=== PATIENT | female | born 1950 | race Caucasian/White ===

== ENCOUNTER 2017-09-08 10:00 | Outpatient (CLI) | payer MEDICARE, SELFPAY | END 2017-09-08 10:45 | disposition home or self-care (01) | PROVIDERS: Visit Provider Family Medicine | DX: G40.909 Epilepsy, unspecified, not intractable, without status epilepticus (principal); Z45.2 Encounter for adjustment and management of vascular access device | CPT/HCPCS: 80185; J1642 ==

== ENCOUNTER 2017-10-17 10:50 | Outpatient (CLI) | payer MEDICARE, SELFPAY ==
[2017-10-17 11:12] VITALS: BP 112/70; PULSE 90; RESP 18; TEMP 36.4; O2SAT 97
[2017-10-17 11:15] VITALS: BMI 11.0
== END 2017-10-17 11:30 | disposition home or self-care (01) ==
LOC: INF 11:57
PROVIDERS: Family Provider Family Medicine; PCP Family Medicine; Visit Provider Family Medicine
DX: Z45.2 Encounter for adjustment and management of vascular access device (principal)
CPT/HCPCS: J1642

== ENCOUNTER 2017-11-28 13:10 | Outpatient (CLI) | payer MEDICARE, SELFPAY ==
[2017-11-28 13:15] VITALS: BP 108/74; PULSE 66; RESP 20; TEMP 37.1; O2SAT 96
[2017-11-28 13:17] VITALS: BMI 10.5
[2017-11-28 13:30] VITALS: BP 108/74; PULSE 66; RESP 20; TEMP 37.1; O2SAT 96
[2017-11-28 13:45] VITALS: BP 108/74; PULSE 66; RESP 20; TEMP 37.1
[2017-11-28 14:05] LABS: Microscopic, Urine URINE MICROSCOPIC (MICROSCOPIC)
[2017-11-28 14:15] LABS: Basophils # 0.1 K/mm3 (0-0.2); Basophils % 0.7 % (0.1-2.0); Eosinophils # 0.4 K/mm3 (0.0-0.4); Eosinophils % 3.2 % (0.1-12.0); Hematocrit 44.7 % (37.0-47.0); Lymphocytes # 2.7 K/mm3 (0.7-4.5); Mean Corpuscular HGB Conc 31.2 g/dL (31.8-35.4); Mean Corpuscular Hemoglobin 28.9 pg (27.0-31.2); Mean Corpuscular Volume 92.7 fl (81-99); Mean Platelet Volume 7.9 fl (7.4-10.4); Monocytes # 0.5 K/mm3 (0.1-1.0); Monocytes % 3.5 % (1.7-9.3); Neutrophils # 9.9 K/mm3 (1.8-7.8); Neutrophils % 72.6 % (37.0-80.0); Platelet Count 410 K/mm3 (142-424); Red Blood Count 4.82 M/mm3 (4.20-5.40); Red Cell Distribution Width 13.8 % (11.5-17.5); White Blood Count 13.6 K/mm3 (4.8-10.8)
[2017-11-28 14:23] LABS: Alanine Aminotransferase 14 U/L (12-78); Albumin Level 2.7 gm/dL (3.4-5.0); Albumin/Globulin Ratio 0.6 (1.1-1.8); Alkaline Phosphatase 226 U/L (46-116); Anion Gap 13.1 mEq/L (5-15); Aspartate Amino Transferase 10 U/L (15-37); Bilirubin,Total 0.2 mg/dL (0.2-1.0); Blood Urea Nitrogen 15 mg/dL (7-18); Calcium 7.7 mg/dL (8.5-10.1); Carbon Dioxide 25 mmol/L (21.0-32.0); Chloride 105 mmol/L (98-107); Creatinine Clearance Estimated 21 mL/min (0-300); Creatinine,Serum 0.38 mg/dL (0.55-1.02); Estimated Glomerular Filt Rate 168 ml/min (>60); GFR (African American) 204 ML/MIN (>60); Globulin 4.2 gm/dl (1.3-3.2); Glucose 100 mg/dL (74-106); Potassium 4.1 mmoL/L (3.5-5.1); Sodium 139 mmol/L (136-145); Total Protein,Serum 6.9 gm/dL (6.4-8.2)
[2017-11-28 14:42] LABS: Phenytoin (Dilantin) 24.7 ug/mL (10-20)
[2017-11-28 15:06] LABS: Appearance,Urine CLOUDY (Clear); Bilirubin,Urine Negative (Negative); Blood, Urine Negative (Negative); Color,Urine YELLOW (Yellow); Glucose,Urine (UA) Negative (Negative); Ketones,Urine TRACE (Negative); Leukocyte Esterase,Urine Negative (Negative); Nitrate,Urine POSITIVE (Negative); PH,Urine 5.5 (5.0-8.5); Protein,Urine Negative (Negative); Specific Gravity, Urine 1.025 (1.005-1.030); Urobilinogen,Urine 0.2 EU/dl (0.2)
[2017-11-28 15:36] LABS: Bacteria,Urine 4+ /lpf
== END 2017-11-28 13:55 | disposition home or self-care (01) ==
LOC: INF 13:13
PROVIDERS: Family Provider Family Medicine; PCP Family Medicine; Visit Provider Family Medicine
DX: Z45.2 Encounter for adjustment and management of vascular access device (principal); R82.90 Unspecified abnormal findings in urine
CPT/HCPCS: 80053; 80185; 81001; 85025; 87086; 87088; 87186; J1642

== ENCOUNTER 2017-11-29 10:53 | Outpatient (CLI) | payer MEDICARE, SELFPAY ==
[2017-11-29 11:28] LABS: Alanine Aminotransferase 17 U/L (12-78); Albumin Level 2.7 gm/dL (3.4-5.0); Albumin/Globulin Ratio 0.7 (1.1-1.8); Alkaline Phosphatase 224 U/L (46-116); Amylase 304 U/L (25-125); Anion Gap 11.3 mEq/L (5-15); Aspartate Amino Transferase 16 U/L (15-37); Bilirubin,Total 0.1 mg/dL (0.2-1.0); Blood Urea Nitrogen 11 mg/dL (7-18); Calcium 7.7 mg/dL (8.5-10.1); Carbon Dioxide 27 mmol/L (21.0-32.0); Chloride 104 mmol/L (98-107); Creatinine Clearance Estimated 21 mL/min (0-300); Creatinine,Serum 0.37 mg/dL (0.55-1.02); Estimated Glomerular Filt Rate 174 ml/min (>60); GFR (African American) 210 ML/MIN (>60); Globulin 4.1 gm/dl (1.3-3.2); Glucose 93 mg/dL (74-106); Lipase 78 u/L (73-393); Magnesium 1.8 mg/dL (1.4-2.2); Potassium 4.3 mmoL/L (3.5-5.1); Sodium 138 mmol/L (136-145); Total Protein,Serum 6.8 gm/dL (6.4-8.2)
[2017-11-30 15:21] LABS: Albumin 3.1 g/dL (2.9-4.4); Alpha-1-Globulin 0.3 g/dL (0.0-0.4); Alpha-2-Globulin 0.8 g/dL (0.4-1.0); Gamma Globulin 1.2 g/dL (0.4-1.8); Protein, Total 6.2 g/dL (6.0-8.5)
[2017-12-01 15:23] LABS: Parathyroid Hormone Intact 217 pg/mL (15-65)
[2017-12-01 15:32] LABS: Vitamin D 25 Hydroxy 4.6 ng/mL (30.0-100.0)
== END 2017-11-29 11:15 | disposition home or self-care (01) ==
LOC: INF 10:53
PROVIDERS: Family Provider Family Medicine; PCP Family Medicine; Visit Provider Family Medicine
DX: R89.9 Unspecified abnormal finding in specimens from other organs, systems and tissues (principal); K86.1 Other chronic pancreatitis; Z45.2 Encounter for adjustment and management of vascular access device
CPT/HCPCS: 80053; 82150; 82652; 83690; 83735; 83970; 84165; J1642

== ENCOUNTER 2018-02-21 13:40 | Outpatient (CLI) | payer MEDICARE, SELFPAY ==
[2018-02-21 14:51] LABS: Basophils # 0.1 K/mm3 (0-0.2); Basophils % 0.9 % (0.1-2.0); Eosinophils # 0.2 K/mm3 (0.0-0.4); Eosinophils % 2.5 % (0.1-12.0); Hemoglobin 11.7 g/dL (12.2-16.2); Lymphocytes # 1.4 K/mm3 (0.7-4.5); Lymphocytes % 19.1 K/mm3 (10-50); Mean Corpuscular HGB Conc 30.9 g/dL (31.8-35.4); Mean Corpuscular Hemoglobin 29.1 pg (27.0-31.2); Mean Corpuscular Volume 94.2 fl (81-99); Mean Platelet Volume 7.2 fl (7.4-10.4); Monocytes # 0.5 K/mm3 (0.1-1.0); Monocytes % 6.9 % (1.7-9.3); Neutrophils # 5.3 K/mm3 (1.8-7.8); Neutrophils % 70.7 % (37.0-80.0); Platelet Count 539 K/mm3 (142-424); Red Blood Count 4.03 M/mm3 (4.20-5.40); Red Cell Distribution Width 15.3 % (11.5-17.5); White Blood Count 7.4 K/mm3 (4.8-10.8)
[2018-02-21 15:03] LABS: Alanine Aminotransferase 16 U/L (12-78); Albumin Level 2.1 gm/dL (3.4-5.0); Albumin/Globulin Ratio 0.5 (1.1-1.8); Alkaline Phosphatase 124 U/L (46-116); Anion Gap 9.1 mEq/L (5-15); Aspartate Amino Transferase 20 U/L (15-37); Bilirubin,Total 0.1 mg/dL (0.2-1.0); Blood Urea Nitrogen 6 mg/dL (7-18); Calcium 7.9 mg/dL (8.5-10.1); Carbon Dioxide 30 mmol/L (21.0-32.0); Chloride 99 mmol/L (98-107); Creatinine Clearance Estimated 19 mL/min (0-300); Estimated Glomerular Filt Rate 221 ml/min (>60); GFR (African American) 268 ML/MIN (>60); Globulin 4.1 gm/dl (1.3-3.2); Glucose 92 mg/dL (74-106); Potassium 3.1 mmoL/L (3.5-5.1); Sodium 135 mmol/L (136-145); Total Protein,Serum 6.2 gm/dL (6.4-8.2)
[2018-02-21 15:04] LABS: Chol/HDL Ratio 3.1 (1-3.5); Cholesterol 173 mg/dL (140-200); HDL Cholesterol 55 mg/dL (29-89); LDL Cholesterol 92 mg/dL (0-130); Triglycerides 129 mg/dL (30-200); VLDL Cholesterol 26 mg/dL (0-40)
[2018-02-21 15:13] LABS: Thyroid Stimulating Hormone 3.31 uIU/ml (0.358-3.740)
[2018-02-23 08:25] LABS: Iron 40 ug/dL (27-139); UIBC 136 ug/dL (118-369)
[2018-02-23 10:28] LABS: Iron Saturation 23 % (15-55)
== END 2018-02-21 14:30 | disposition home or self-care (01) ==
LOC: INF 14:10
PROVIDERS: Family Provider Family Medicine; PCP Family Medicine; Visit Provider Nurse Practitioner Family
DX: I10 Essential (primary) hypertension (principal); F32.0 Major depressive disorder, single episode, mild; E78.2 Mixed hyperlipidemia; D50.0 Iron deficiency anemia secondary to blood loss (chronic)
CPT/HCPCS: 80053; 80061; 83550; 84443; 85025; J1642

== ENCOUNTER 2018-02-23 12:45 | Outpatient (CLI) | payer MEDICARE, SELFPAY ==
[2018-02-23 13:45] LABS: Anion Gap 11.7 mEq/L (5-15); Blood Urea Nitrogen 12 mg/dL (7-18); Calcium 8.1 mg/dL (8.5-10.1); Carbon Dioxide 30 mmol/L (21.0-32.0); Chloride 103 mmol/L (98-107); Creatinine Clearance Estimated 19 mL/min (0-300); Creatinine,Serum 0.35 mg/dL (0.55-1.02); Estimated Glomerular Filt Rate 185 ml/min (>60); GFR (African American) 224 ML/MIN (>60); Glucose 119 mg/dL (74-106); Sodium 142 mmol/L (136-145)
[2018-02-23 13:47] LABS: Potassium 2.7 mmoL/L (3.5-5.1)
[2018-02-23 13:58] LABS: Basophils % 0.4 % (0.1-2.0); Eosinophils # 0.1 K/mm3 (0.0-0.4); Eosinophils % 0.7 % (0.1-12.0); Hematocrit 37.7 % (37.0-47.0); Hemoglobin 11.2 g/dL (12.2-16.2); Lymphocytes # 1.4 K/mm3 (0.7-4.5); Lymphocytes % 12.9 K/mm3 (10-50); Mean Corpuscular HGB Conc 29.7 g/dL (31.8-35.4); Mean Corpuscular Hemoglobin 28.2 pg (27.0-31.2); Mean Corpuscular Volume 94.9 fl (81-99); Mean Platelet Volume 7.5 fl (7.4-10.4); Monocytes # 0.4 K/mm3 (0.1-1.0); Monocytes % 4.1 % (1.7-9.3); Neutrophils # 8.6 K/mm3 (1.8-7.8); Neutrophils % 81.9 % (37.0-80.0); Platelet Count 587 K/mm3 (142-424); Red Blood Count 3.97 M/mm3 (4.20-5.40); Red Cell Distribution Width 15.4 % (11.5-17.5); White Blood Count 10.5 K/mm3 (4.8-10.8)
[2018-02-24 09:23] LABS: Iron 42 ug/dL (27-139)
[2018-02-24 20:26] LABS: UIBC 111 ug/dL (118-369)
[2018-02-24 20:27] LABS: Calcium, Ionized 4.9 mg/dL (4.5-5.6); Iron Saturation 27 % (15-55)
== END 2018-02-23 13:10 | disposition home or self-care (01) ==
LOC: INF 13:55
PROVIDERS: PCP Nurse Practitioner Family; Visit Provider Nurse Practitioner Family
DX: D50.8 Other iron deficiency anemias (principal); E83.51 Hypocalcemia; E87.6 Hypokalemia
CPT/HCPCS: 80048; 82330; 83550; 85025; J1642

== ENCOUNTER → 2018-02-27 09:13 | Outpatient (CLI) | payer MEDICARE, SELFPAY ==
--- NOTE | 2018-02-27 09:29 | CT_ITS ---
CT abdomen pelvis w con CLINICAL INDICATION: ITS.REASON: PELVIC AND PERINEAL PAIN ORDERING PHYSICIAN: Stephanie Harper PATIENT AGE: 67 years COMPARISON: None TECHNIQUE: Axial images obtained with sagittal and coronal reformats. All CT scans at the facility use one or more dose reduction, viz: automated exposure control; ma/kV adjustment per patient size (including targeted exams where dose is matched to indication; i.e. head); or iterative reconstruction technique. Axial images are obtained at 30 seconds, 60 seconds, and 5 minute delayed PROCEDURE: Oral Contrast: None IV Contrast: 50 mL's of Isovue-370. FINDINGS: The report is delayed waiting old MRI films for comparison which are have not been made available .. There is an unenhanced CT scan from 01/02/2018 from [facility] is available. Patient is very cachectic. No acute finding in the lung bases. There is a gastrostomy tube present the tip in good position. There is a 3 mm isodensity in the right hepatic lobe which may be due to small cyst. There has been a prior cholecystectomy. There is mild dilatation of the intra and extrahepatic biliary tree. The spleen, adrenal glands, and kidneys have an unremarkable appearance Percutaneous gastrostomy tube is present. It appears that the patient has had prior gastrojejunostomy. There are multiple unopacified loops of small and large bowel which could secure mimic pathology. Rectum is somewhat distended with gas and stool. There is a prominent loop of small bowel in the mid pelvic region no free air is evident. No obvious abscess. There is a complex enhancing mass in the region of the head of the pancreas at the uncinate process measuring 3 x 2.5 cm. This is heterogeneous in nature demonstrating some small cystic areas but also showing contrast enhancement. It is difficult to determine the extent of this lesion secondary to the unopacified bowel and the patient's severe cachexia. No acute bony anomalies. There is a defect in the right ilium laterally and centrally and could be due to prior trauma or bone harvesting site. IMPRESSION: 1. 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 Those images are not available for review. The dimensions are similar to the MRI report of 3 x 2.5 cm. 2. Dilated small bowel loops in the mid and lower abdomen nonspecific and may be related to prior gastrojejunostomy. 3. Moderate amount retained colonic feces. Study is very limited for bowel evaluation secondary to patient's cachexia and lack of oral contrast. 1. No acute bony anomalies.
== END ==
PROVIDERS: Family Provider Family Medicine; PCP Nurse Practitioner Family; Visit Provider Nurse Practitioner Family
DX: R10.2 Pelvic and perineal pain (principal)
CPT/HCPCS: 74177; J1642; Q9967

== ENCOUNTER → 2018-03-08 10:33 | Outpatient (REF) | payer MEDICARE, SELFPAY | LOC: LAB.CARL 10:33 | PROVIDERS: Visit Provider Nurse Practitioner Family | DX: L02.211 Cutaneous abscess of abdominal wall (principal); R10.32 Left lower quadrant pain | CPT/HCPCS: 87070; 87077; 87186; 87205 ==

== ENCOUNTER 2018-03-23 10:58 | Outpatient (CLI) | payer MEDICARE, SELFPAY | END 2018-03-23 11:10 | disposition home or self-care (01) | LOC: INF 10:58 | PROVIDERS: Family Provider Family Medicine; PCP Nurse Practitioner Family; Visit Provider Family Medicine | DX: Z45.2 Encounter for adjustment and management of vascular access device (principal) | CPT/HCPCS: 96523; J1642 ==

== ENCOUNTER 2018-04-24 10:58 | Outpatient (CLI) | payer MEDICARE, SELFPAY | END 2018-04-24 11:10 | disposition home or self-care (01) | LOC: INF 10:58 | PROVIDERS: Family Provider Family Medicine; PCP Nurse Practitioner Family; Visit Provider Family Medicine | DX: Z45.2 Encounter for adjustment and management of vascular access device (principal) | CPT/HCPCS: 96523; J1642 ==

== ENCOUNTER 2018-05-25 10:35 | Outpatient (CLI) | payer MEDICARE, SELFPAY ==
[2018-05-25 10:55] VITALS: BP 132/68; PULSE 90; RESP 20; TEMP 36.9; O2SAT 96
== END 2018-05-25 11:05 | disposition home or self-care (01) ==
LOC: INF 10:51
PROVIDERS: PCP Nurse Practitioner Family; Visit Provider Nurse Practitioner Family
DX: Z45.2 Encounter for adjustment and management of vascular access device (principal)
CPT/HCPCS: 96523; J1642

== ENCOUNTER 2018-06-29 09:51 | Outpatient (CLI) | payer MEDICARE, SELFPAY ==
[2018-06-29 09:55] VITALS: BP 135/74; PULSE 68; RESP 20; TEMP 36.9; O2SAT 96
[2018-07-30 08:59] VITALS: BMI 11.2
== END 2018-06-29 10:00 | disposition home or self-care (01) ==
LOC: INF 09:51
PROVIDERS: Visit Provider Family Medicine
DX: Z45.2 Encounter for adjustment and management of vascular access device (principal)
CPT/HCPCS: 96523; J1642

== ENCOUNTER 2018-08-17 09:35 | Outpatient (CLI) | payer MEDICARE, SELFPAY | END 2018-08-17 09:55 | disposition home or self-care (01) | LOC: INF 09:38 | PROVIDERS: Visit Provider Nurse Practitioner Family | DX: Z45.2 Encounter for adjustment and management of vascular access device (principal); E44.0 Moderate protein-calorie malnutrition | CPT/HCPCS: 96523; J1642 ==

== ENCOUNTER 2018-09-19 10:00 | Outpatient (CLI) | payer MEDICARE, SELFPAY ==
[2018-09-19 10:10] VITALS: BP 106/55; PULSE 72; RESP 18; O2SAT 96
== END 2018-09-19 10:20 | disposition home or self-care (01) ==
LOC: INF 10:03
PROVIDERS: Visit Provider Nurse Practitioner Family
DX: Z45.2 Encounter for adjustment and management of vascular access device (principal)
CPT/HCPCS: 96523; J1642

== ENCOUNTER 2018-10-19 14:25 | Outpatient (CLI) | payer MEDICARE, SELFPAY | END 2018-10-19 15:00 | disposition home or self-care (01) | LOC: INF 14:45 | PROVIDERS: Visit Provider Nurse Practitioner Family | DX: Z45.2 Encounter for adjustment and management of vascular access device (principal); E44.0 Moderate protein-calorie malnutrition | CPT/HCPCS: 96523 ==

== ENCOUNTER 2018-11-20 10:48 | Outpatient (CLI) | payer MEDICARE, SELFPAY | END 2018-11-20 11:04 | disposition home or self-care (01) | LOC: INF 10:48 | PROVIDERS: Visit Provider Nurse Practitioner Family | DX: Z45.2 Encounter for adjustment and management of vascular access device (principal); E44.0 Moderate protein-calorie malnutrition | CPT/HCPCS: 96523; J1642 ==

== ENCOUNTER 2018-12-18 10:53 | Outpatient (CLI) | payer MEDICARE, SELFPAY ==
[2018-12-18 10:57] VITALS: BMI 11.3
[2018-12-18 11:35] LABS: Basophils # 0.1 K/mm3 (0-0.2); Basophils % 0.5 % (0.1-2.0); Eosinophils # 0.3 K/mm3 (0.0-0.4); Eosinophils % 2.3 % (0.1-12.0); Hematocrit 41.9 % (37.0-47.0); Hemoglobin 13.3 g/dL (12.2-16.2); Lymphocytes # 1.7 K/mm3 (0.7-4.5); Lymphocytes % 15.7 % (10-50); Mean Corpuscular HGB Conc 31.9 g/dL (31.8-35.4); Mean Corpuscular Hemoglobin 30.7 pg (27.0-31.2); Mean Corpuscular Volume 96.3 fl (81-99); Mean Platelet Volume 6.7 fl (7.4-10.4); Monocytes # 0.6 K/mm3 (0.1-1.0); Monocytes % 5.2 % (1.7-9.3); Neutrophils # 8.1 K/mm3 (1.8-7.8); Neutrophils % 76.4 % (37.0-80.0); Platelet Count 345 K/mm3 (142-424); Red Blood Count 4.35 M/mm3 (4.20-5.40); Red Cell Distribution Width 12.6 % (11.5-17.5); White Blood Count 10.6 K/mm3 (4.8-10.8)
[2018-12-18 12:04] LABS: Iron 64 ug/dl (28-170); Thyroid Stimulating Hormone 1.73 uIU/ml (0.358-3.740)
[2018-12-18 12:23] LABS: Alanine Aminotransferase 21 U/L (12-78); Albumin Level 3.1 gm/dL (3.4-5.0); Albumin/Globulin Ratio 0.9 (1.1-1.8); Alkaline Phosphatase 100 U/L (46-116); Anion Gap 14.2 mEq/L (5-15); Aspartate Amino Transferase 17 U/L (15-37); Bilirubin,Total 0.2 mg/dL (0.2-1.0); Blood Urea Nitrogen 17 mg/dL (7-18); Calcium 8.4 mg/dL (8.5-10.1); Carbon Dioxide 28 mmol/L (21.0-32.0); Chloride 104 mmol/L (98-107); Chol/HDL Ratio 4.2 (1-3.5); Cholesterol 180 mg/dL (140-200); Creatinine Clearance Estimated 22 mL/min (50-200); Creatinine,Serum 0.38 mg/dL (0.55-1.02); Estimated Glomerular Filt Rate 168 ml/min (>60); GFR (African American) 203 ML/MIN (>60); Globulin 3.4 gm/dl (1.3-3.2); Glucose 101 mg/dL (74-106); HDL Cholesterol 43 mg/dL (29-89); LDL Cholesterol 109 mg/dL (0-130); Potassium 4.2 mmoL/L (3.5-5.1); Sodium 142 mmol/L (136-145); Total Protein,Serum 6.5 gm/dL (6.4-8.2); Triglycerides 140 mg/dL (30-200); VLDL Cholesterol 28 mg/dL (0-40)
[2018-12-19 07:15] LABS: Iron 67 ug/dL (27-139); UIBC 167 ug/dL (118-369)
[2018-12-19 08:26] LABS: Iron Saturation 29 % (15-55)
[2018-12-19 14:10] LABS: Folate 17.3 ng/mL (>3.0); Vitamin B12 512 pg/mL (232-1245)
== END 2018-12-18 11:27 | disposition home or self-care (01) ==
LOC: INF 10:53
PROVIDERS: Visit Provider Nurse Practitioner Family
DX: Z45.2 Encounter for adjustment and management of vascular access device (principal); D50.0 Iron deficiency anemia secondary to blood loss (chronic); E78.2 Mixed hyperlipidemia; R63.4 Abnormal weight loss
CPT/HCPCS: 80053; 80061; 82607; 82746; 83540; 83550; 84443; 85025; J1642

== ENCOUNTER → 2018-12-25 14:38 | Outpatient (CLI) | payer MEDICARE, SELFPAY ==
--- NOTE | 2018-12-25 14:44 | XR_ITS ---
XR chest 2V HISTORY: pneumonia, smoker, COPD ITS.REASON: PNEUMONIA ORDERING PHYSICIAN: Stephanie Harper PATIENT AGE: 68 years COMPARISON: 5:15 FINDINGS: The heart size is unremarkable. There is hyperinflation with attenuation of the peripheral pulmonary vessels consistent with COPD. There is increased density in the left lung base especially is for an area of pneumonia. Some of this may be due to soft tissue attenuation from the overlying breast shadow is a patient is slightly rotated. The remaining lungs are clear. No acute bony findings. There is a right subclavian Mediport catheter present with the tip in the region of the SVC. IMPRESSION: COPD with left basilar infiltrate
== END ==
PROVIDERS: PCP Nurse Practitioner Family; Visit Provider Nurse Practitioner Family
DX: J18.9 Pneumonia, unspecified organism (principal)
CPT/HCPCS: 71046

== ENCOUNTER 2019-01-15 10:48 | Outpatient (CLI) | payer MEDICARE, SELFPAY | END 2019-01-15 11:03 | disposition home or self-care (01) | LOC: INF 10:48 | PROVIDERS: Visit Provider Nurse Practitioner Family | DX: Z45.2 Encounter for adjustment and management of vascular access device (principal); E44.0 Moderate protein-calorie malnutrition | CPT/HCPCS: 96523; J1642 ==

== ENCOUNTER 2019-02-12 10:29 | Outpatient (CLI) | payer MEDICARE, SELFPAY | END 2019-02-12 10:50 | disposition home or self-care (01) | LOC: INF 10:29 | PROVIDERS: Visit Provider Nurse Practitioner Family | DX: Z45.2 Encounter for adjustment and management of vascular access device (principal); E44.0 Moderate protein-calorie malnutrition | CPT/HCPCS: 96523; J1642 ==

== ENCOUNTER 2019-03-18 13:22 | Outpatient (CLI) | payer MEDICARE, SELFPAY | END 2019-03-18 13:25 | disposition home or self-care (01) | LOC: INF 13:22 | PROVIDERS: Visit Provider Nurse Practitioner Family | DX: E44.0 Moderate protein-calorie malnutrition (principal); Z45.2 Encounter for adjustment and management of vascular access device | CPT/HCPCS: 96523; J1642 ==

== ENCOUNTER 2019-04-23 11:37 | Outpatient (CLI) | payer MEDICARE, SELFPAY | END 2019-04-23 12:00 | disposition home or self-care (01) | LOC: INF 11:37 | PROVIDERS: Visit Provider Nurse Practitioner Family | DX: E44.0 Moderate protein-calorie malnutrition (principal); Z45.2 Encounter for adjustment and management of vascular access device | CPT/HCPCS: 96523; J1642 ==

== ENCOUNTER 2019-05-21 11:34 | Outpatient (CLI) | payer MEDICARE, SELFPAY | END 2019-05-21 12:03 | disposition home or self-care (01) | LOC: INF 11:34 | PROVIDERS: Visit Provider Nurse Practitioner Family | DX: Z45.2 Encounter for adjustment and management of vascular access device (principal); E44.0 Moderate protein-calorie malnutrition | CPT/HCPCS: 96523; J1642 ==

== ENCOUNTER 2019-06-28 10:40 | Outpatient (CLI) | payer MEDICARE, SELFPAY ==
[2019-06-28 10:49] VITALS: BMI 10.5
[2019-06-28 11:10] LABS: Basophils # 0.1 K/mm3 (0-0.2); Basophils % 0.8 % (0.1-2.0); Eosinophils # 0.3 K/mm3 (0.0-0.4); Eosinophils % 3.2 % (0.1-12.0); Hematocrit 37.6 % (37.0-47.0); Hemoglobin 11.1 g/dL (12.2-16.2); Lymphocytes # 1.4 K/mm3 (0.7-4.5); Mean Corpuscular HGB Conc 29.6 g/dL (31.8-35.4); Mean Corpuscular Hemoglobin 28.9 pg (27.0-31.2); Mean Corpuscular Volume 97.4 fl (81-99); Mean Platelet Volume 7.1 fl (7.4-10.4); Monocytes # 0.4 K/mm3 (0.1-1.0); Monocytes % 4.9 % (1.7-9.3); Neutrophils # 6.5 K/mm3 (1.8-7.8); Platelet Count 347 K/mm3 (142-424); Red Blood Count 3.86 M/mm3 (4.20-5.40); Red Cell Distribution Width 13.3 % (11.5-17.5); White Blood Count 8.7 K/mm3 (4.8-10.8)
[2019-06-28 11:28] LABS: Alanine Aminotransferase 14 U/L (12-78); Albumin/Globulin Ratio 0.8 (1.1-1.8); Alkaline Phosphatase 150 U/L (46-116); Anion Gap 7.8 mEq/L (5-15); Aspartate Amino Transferase 16 U/L (15-37); Bilirubin,Total 0.2 mg/dL (0.2-1.0); Blood Urea Nitrogen 16 mg/dL (7-18); Carbon Dioxide 32 mmol/L (21.0-32.0); Chloride 102 mmol/L (98-107); Creatinine Clearance Estimated 21 mL/min (50-200); Creatinine,Serum 0.33 mg/dL (0.55-1.02); Estimated Glomerular Filt Rate 198 ml/min (>60); GFR (African American) 239 ML/MIN (>60); Globulin 3.8 gm/dl (1.3-3.2); Glucose 118 mg/dL (74-106); Potassium 3.8 mmoL/L (3.5-5.1); Sodium 138 mmol/L (136-145); Thyroid Stimulating Hormone 1.31 uIU/ml (0.358-3.740); Total Protein,Serum 6.8 gm/dL (6.4-8.2)
== END 2019-06-28 11:00 | disposition home or self-care (01) ==
LOC: INF 10:40
PROVIDERS: Visit Provider Nurse Practitioner Family
DX: E44.0 Moderate protein-calorie malnutrition (principal); I10 Essential (primary) hypertension; D50.0 Iron deficiency anemia secondary to blood loss (chronic); J44.9 Chronic obstructive pulmonary disease, unspecified; F41.1 Generalized anxiety disorder; Z45.2 Encounter for adjustment and management of vascular access device
CPT/HCPCS: 80053; 84443; 85025; J1642

== ENCOUNTER 2019-07-21 03:58 | Observation (INO) ==
--- NOTE | 2019-07-21 04:12 | Emergency Department Note ---
ED Disposition Clinical Impression: COPD exacerbation Disposition: Admitted as Observation Condition on Discharge: Fair Referrals: Provider,Referral, [Primary Care Provider] - - Critical Care Critical Care Time: No Attestation: On 07/21/19, the high probability of a clinically significant, sudden or life threatening deterioration of the following system(s) required my full and direct attention, intervention and personal management. The time I documented below is in addition to time spent performing reported procedures but includes the following listed in this critical care notation. Medical Decision Making - Mohan Inquiry Pt receiving controlled substance: No Vital Signs: 07/21/19 04:06 Temperature 98.3 F Temperature Source Oral Pulse Rate [Left Radial] 109 H Respiratory Rate 22 Blood Pressure [Right Arm] 140/80 Blood Pressure Mean [Right Arm] 100 Blood Pressure Source [Right Arm] Automatic Cuff Blood Pressure Position [Right Arm] Sitting 02 Sat by Pulse Oximetry 93 L Oxygen Delivery Method Nasal Cannula Oxygen Flow Rate (LPM) 2 - Lab Data Lab Results 07/21/19 04:15: WBC 15.9 H, RBC 3.82 L, Hgb 11.7 L, Hct 38.2, MCV 99.8 H, MCH 30.6, MCHC 30.6 L, RDW 13.0, Plt Count 364, MPV 7.0 L, Neut % (Auto) 79.2, Lymph % (Auto) 12.2, [place] % (Auto) 5.9, Eos % (Auto) 2.1, Baso % (Auto) 0.5, Neut # (Auto) 12.6 H, Lymph # (Auto) 2.0, [place] # (Auto) 0.9, Eos # (Auto) 0.3, Baso # (Auto) 0.1, Total Counted 100, Neutrophils % (Manual) 79 H, Band Neutrophils % 5.0, Lymphocytes % (Manual) 12, Monocytes % (Manual) 4, Platelet Estimate Normal, Hypochromasia 3+, Macrocytosis 1+ 07/21/19 04:15: Sodium 141, Potassium 4.4, Chloride 102, Carbon Dioxide 29, Anion Gap 14.4, BUN 19 H, Creatinine 0.43 L, Estimated Creat Clear 23, Estimated GFR 146, Est GFR ( Amer) 176, Glucose 90, Calcium 8.7, Total Bilirubin 0.3, AST 20, ALT 19, Alkaline Phosphatase 141 H, Troponin I < 0.02, Total Protein 7.0, Albumin 3.3 L, Globulin 3.7 H, Albumin/Globulin Ratio 0.9 L 07/21/19 04:15: Lactate 0.6 07/21/19 04:22: O2 % 2, ABG pH 7.36, ABG pCO2 45.5 H, ABG pO2 40.0 L, ABG HCO3 25.0, ABG Total CO2 26.4, ABG O2 Saturation 74 L*, ABG Base Excess -0.5, Raul Test Y Result diagrams: 07/21/19 04:15 07/21/19 04:15 Orders (Tests/Meds): ED MEDICATIONS Generic Name Dose Route Start Last Admin Trade Name Freq PRN Reason Stop Dose Admin Ceftriaxone Sodium 1 gm/ 50 mls @ 100 mls/hr 07/21/19 04:15 07/21/19 04:26 Sodium Chloride IV 08/04/19 04:14 100 mls/hr Q24H AARON Administration Protocol Azithromycin 500 mg/ Sodium 250 mls @ 250 mls/hr 07/21/19 04:15 07/21/19 04:34 Chloride IV 08/04/19 04:14 250 mls/hr Q24H AARON Administration Protocol Discontinued Medications Generic Name Dose Route Start Last Admin Trade Name Freq PRN Reason Stop Dose Admin Methylprednisolone Sodium Succinate 125 mg 07/21/19 04:13 07/21/19 04:26 Solu-Medrol 125mg/2ml Vial IV 07/21/19 04:14 125 mg ONCE ONE Administration ORDERS Category Date Time Status XR chest portable Stat Exams 07/21/19 04:13 Ordered Blood Culture Stat Micro 07/21/19 04:15 Received Arterial Blood Gas Stat RT 07/21/19 04:13 Ordered - Radiology Data #1 Image(s): Chest Image Reviewed: Yes I reviewed the patient's radiology image Severe COPD. Fibrotic changes in the bases. Port-A-Cath. - ECG Data Tracing #1 EKG interpreted by Turner Zhu MD: Rhythm: sinus tachycardia Rate: 105 [place]: normal Ectopy: none Conduction: normal ST Segment Changes: none T Wave Changes: none Q Waves: none No evidence of acute ischemia or injury Baseline artifact and wander present - Physician Consults Physician Consulted: Fer Time: 05:16 Reason -: Admission Comment/Response: Agrees to admit the patient to the hospital. We discussed the patient's clinical information, including history, exam, laboratory and radiology results and ED course. Per hospital procedure, I will write temporary bridge inpatient orders on the patient. Specific orders requested by the admitting physician: Continue current treatment Medical Decision Narrative: Respiratory therapist reports that he is pretty sure the blood gasses he gerber are venous General Adult HPI - General Chief complaint: Shortness of Breath/Dyspnea Stated complaint: Shortness of Breath Time Seen by Provider: 07/21/19 04:04 - History of Present Illness HPI narrative: Brought in by ambulance for shortness of breath. States she has been she has been short of breath all day. Used a nebulizer and it helped but then got worse tonight. Given 2 nebulizer treatments in the ambulance during transport which s he also says helped. She has severe COPD, she is on oxygen 2 L nasal cannula at home in addition to her nebulizer treatments. She is still a smoker. Denies any significant cough or sputum production or fever. Has pain in her chest and back for 2 days. - Related Data Home Medications Medication Instructions Recorded Confirmed Phenytoin Sodium Extended 200 mg PO QODHS 10/17/17 07/21/19 Phenytoin Sodium Extended 300 mg PO QODHS 10/17/17 07/21/19 Sertraline HCl [Zoloft] 50 mg PO DAILY 10/17/17 07/21/19 diphenhydrAMINE HCl [Benadryl] 25 mg PO NEEDED PRN 10/17/17 07/21/19 Amlodipine Besylate [Amlodipine 5 mg PO DAILY 07/21/19 07/21/19 5mg tab] Ipratropium/Albuterol Sulfate 120 puff IN DAILY 07/21/19 07/21/19 [Combivent Respimat Inh] predniSONE [Prednisone 5mg 5 mg PO DAILY 07/21/19 07/21/19 Tab] Allergies Allergy/AdvReac Type Severity Reaction Status Date / Time aspirin [ASPIRIN] Allergy Severe ANAPHYLAXIS Verified 07/21/19 04:12 latex [LATEX] Allergy Intermediate I-RASH Verified 07/21/19 04:12 meperidine [From DEMEROL] Allergy Intermediate I-HIVES, Verified 07/21/19 04:12 DIFF BREATHING [facility] History - Hepatitis A Screen Attestation statement:: This patient has been screened for Hepatitis A risk factors. I have reviewed the patient's past medical history: Yes Medical History: Denies:: Cancer, Diabetes Mellitus Type 1, Diabetes Mellitus Type 2, MRSA Other Surgeries: Yes: Other (port a cath placement) Amputation: No Fractures: No - Social History Smoking Status: Current every day smoker Tobacco Type: cigarettes # Packs/Day (cigarettes): 1 Alcohol Intake: never Occupational Status: disabled Housing: house Household Members: spouse Family Hx:: Cancer, Coronary Artery Disease, Hypertension ROS Obtained: Yes All systems reviewed & no additional complaints - Constitutional Constitutional: Denies fever(s) - Cardiovascular Cardiovascular: Reports chest pain - Respiratory Respiratory: No cough, Yes dyspnea, No excessive phlegm production, No coughing up blood - Gastrointestinal Gastrointestingal: Denies: abdominal pain, vomiting Physical Exam - General General appearance: alert, in distress (mild resp distress), cachectic Comment: tachypnea - Head Head exam: atraumatic, normocephalic - Eye Eye exam: Absent: scleral icterus - ENT ENT exam: Present: mucous membranes moist - Neck Neck exam: Present: normal inspection, trachea midline - Chest Chest inspection: Present: symmetric chest wall rise - Respiratory Respiratory exam: Present: wheezes, accessory muscle use, other (rhonchi) - Cardiovascular Cardiovascular exam: Present: normal rhythm, normal heart sounds - Abdominal Exam Abdominal exam: Present: soft, normal bowel sounds. Absent: distention, tenderness - Extremities Exam Extremities exam: Present: normal inspection - Neurological Exam Neurological exam: Present: alert, oriented X3 - Psychiatric Psychiatric exam: Present: normal affect, normal mood - Skin Skin exam: Present: warm, dry
[2019-07-21 04:23] LABS: ABG Base Excess -0.5 mmol/L (-2.4-2.3); ABG Oxygen Saturation 74 % (90-100); ABG PCO2 45.5 mmhg (35.0-45.0); ABG TCO2 26.4 mmhg (23-27)
[2019-07-21 04:27] LABS: Basophils # 0.1 K/mm3 (0-0.2); Basophils % 0.5 % (0.1-2.0); Eosinophils # 0.3 K/mm3 (0.0-0.4); Eosinophils % 2.1 % (0.1-12.0); Hematocrit 38.2 % (37.0-47.0); Hemoglobin 11.7 g/dL (12.2-16.2); Lymphocytes % 12.2 % (10-50); Mean Corpuscular HGB Conc 30.6 g/dL (31.8-35.4); Mean Corpuscular Volume 99.8 fl (81-99); Monocytes # 0.9 K/mm3 (0.1-1.0); Monocytes % 5.9 % (1.7-9.3); Neutrophils # 12.6 K/mm3 (1.8-7.8); Neutrophils % 79.2 % (37.0-80.0); Platelet Count 364 K/mm3 (142-424); Red Blood Count 3.82 M/mm3 (4.20-5.40); White Blood Count 15.9 K/mm3 (4.8-10.8)
[2019-07-21 04:30] LABS: Allen's Test Y; Oxygen 2 %
[2019-07-21 04:32] LABS: ABG PH 7.36 mmol/L (7.35-7.45)
[2019-07-21 04:43] LABS: Lymphocytes % 12 % (10-50); Monocytes % 4 % (2-9); Neutrophils % 79 % (42-76); Total Cells Counted 100
[2019-07-21 04:44] LABS: Hypochromasia 3+; Macrocytosis 1+
[2019-07-21 04:51] LABS: Alanine Aminotransferase 19 U/L (12-78); Albumin Level 3.3 gm/dL (3.4-5.0); Albumin/Globulin Ratio 0.9 (1.1-1.8); Alkaline Phosphatase 141 U/L (46-116); Anion Gap 14.4 mEq/L (5-15); Aspartate Amino Transferase 20 U/L (15-37); Bilirubin,Total 0.3 mg/dL (0.2-1.0); Blood Urea Nitrogen 19 mg/dL (7-18); Calcium 8.7 mg/dL (8.5-10.1); Carbon Dioxide 29 mmol/L (21.0-32.0); Chloride 102 mmol/L (98-107); Globulin 3.7 gm/dl (1.3-3.2); Glucose 90 mg/dL (74-106); Sodium 141 mmol/L (136-145)
--- NOTE | 2019-07-21 10:47 | Pharmacy Consult Notes ---
[facility] Pharmacy VTE Monitoring - Patient Demographics Admission date: 07/21/19 Report Date: 07/21/19 Time: 10:47 Allergies/Adverse Reactions: Patient Allergies aspirin [ASPIRIN] Allergy (Severe, Verified 07/21/19 04:12) ANAPHYLAXIS latex [LATEX] Allergy (Intermediate, Verified 07/21/19 04:12) I-RASH meperidine [From DEMEROL] Allergy (Intermediate, Verified 07/21/19 04:12) I-HIVES, DIFF BREATHING Height: 1.52 m Weight: 27.697 kg Patient Problems: Current Active Problems COPD exacerbation (Acute) - VTE Risk Labs: VTE Related Lab Results Hgb 11.7 g/dL (12.2-16.2) L 07/21/19 04:15 Hct 38.2 % (37.0-47.0) 07/21/19 04:15 Plt Count 364 K/mm3 (142-424) 07/21/19 04:15 BUN 19 mg/dL (7-18) H 07/21/19 04:15 Creatinine 0.43 mg/dL (0.55-1.02) L 07/21/19 04:15 Estimated Creat Clear 23 mL/min (50-200) 07/21/19 04:15 Was VTE Risk Assessment Performed: Yes VTE Score: 5 VTE Risk Level: Low Risk - Prophylaxis Types of VTE Prophylaxis: TEDS Knee High Location of Applied Device: Bilateral Lower Extremeties (GILSNO HOSE ORDER PLACED.)
--- NOTE | 2019-07-21 10:53 | History & Physical Report ---
*Admission Date: 07/21/19 *Chief complaint: Shortness of breath, "feels like I was about to " *History of present illness: Patient is a 68-year-old female who presented to our ED via ambulance with shortness of breath, who has history of GOLD stage IV COPD. She mentions that she has been short of breath all day and had used her nebulizers which did help some but got worse at nighttime but she could not lay down. She usually uses hospital bed, however she could not even sit up today night so she called the ambulance and came into her ED. In route she received 2 nebulizer treatments in the ambulance. She is a chronic smoker. She uses home oxygen of 2 L of nasal cannula continuously. She denies having any significant cough or sputum production or any fever at this time. She mentions having a slight pleuritic pain in her chest and back for the past 2 to 3 days. Having any nausea vomiting diarrhea. She also mentions that she has been out of her inhaler Combivent for the past few days due to her insurance not covering it. She used to see Leroy at [facility]. In the ED, work-up showed left lower lobe pneumonia with chronic COPD changes in her chest x-ray. Her blood count was elevated to 15,000. However she was on chronic steroids which could explain this leukocytosis. Cultures are pending at this time. [facility] History I have reviewed the patient's past medical history: Yes Medical History: Reports:: Home Oxygen, Hypertension Denies:: Cancer, Diabetes Mellitus Type 1, Diabetes Mellitus Type 2, MRSA *Have you ever received a pneumonia vaccine?: Yes *Have you received a flu vaccine this season?: No Other Medical History: Reports: Arthritis Other Surgeries: Yes: Appendectomy, Cholecystectomy, Colonoscopy, Hysterectomy- Total, Hysterectomy-Partial, Tubal Ligation, Other (port a cath placement) Amputation: No Fractures: No - *Social History Educational Level: Attended College Smoking Status: Current every day smoker Tobacco Type: cigarettes # Packs/Day (cigarettes): 1 Alcohol Intake: never *Occupational Status:: disabled Housing: house Household Members: spouse *Travel in the last 8 weeks: None Family Hx:: Cancer, Coronary Artery Disease, Hypertension Review of Systems - Constitutional Reports lack of energy, Reports malaise Comments: cachetic 2/2 energy expenditure from COPD - Eyes Denies change in vision, Denies floaters, Denies irritation - ENT Denies bleeding gums, Denies change in voice, Denies facial pain, Denies bad breath, Denies lip swelling - *Cardiovascular Reports shortness of breath, Reports shortness of breath with activity, Reports shortness of breath when lying down, Denies chest pain, Denies chest pain at rest, Denies chest pain with activity, Denies irregular heart rhythm, Denies shortness of breath causing sudden awakening - *Respiratory Reports chest congestion, Reports cough, Reports shortness of breath, Reports shortness of breath with activity, Reports pain with cough, Denies coughing up blood, Denies pain on inspiration - *Gastrointestinal Denies abdominal pain, Denies bloating, Denies difficulty swallowing - *Genitourinary Denies abnormal periods, Denies abnormal vaginal bleeding - *Musculoskeletal Reports decreased muscle mass, Reports muscle weakness, Denies abnormal walking, Denies joint pain, Denies stiffness - Integumentary/Breasts Denies bleeding lesions, Denies changing lesions - *Neurologic Denies abnormal hearing, Denies dizziness - Psychiatric Denies lack of enjoyment, Denies hearing things others do not hear - Endocrine Denies cold intolerance, Denies excessive sweating - Hematologic/Lymphatic Denies easy bleeding - Allergic/Immunologic Denies GI upset with certain foods Meds Home Medications Medication Instructions Recorded Confirmed Type Phenytoin Sodium Extended 200 mg PO QODHS 10/17/17 07/21/19 History Phenytoin Sodium Extended 300 mg PO QODHS 10/17/17 07/21/19 History Sertraline HCl [Zoloft] 50 mg PO DAILY 10/17/17 07/21/19 History diphenhydrAMINE HCl [Benadryl] 25 mg PO NEEDED PRN 10/17/17 07/21/19 History Amlodipine Besylate [Amlodipine 5 mg PO DAILY 07/21/19 07/21/19 History 5mg tab] Ipratropium/Albuterol Sulfate 1 puff IN QID 07/21/19 07/21/19 History [Combivent Respimat Inh] predniSONE [Prednisone 5mg 5 mg PO DAILY 07/21/19 07/21/19 History Tab] Allergies Allergy/AdvReac Type Severity Reaction Status Date / Time aspirin [ASPIRIN] Allergy Severe ANAPHYLAXIS Verified 07/21/19 04:12 latex [LATEX] Allergy Intermediate I-RASH Verified 07/21/19 04:12 meperidine [From DEMEROL] Allergy Intermediate I-HIVES, Verified 07/21/19 04:12 DIFF BREATHING Exam Vital signs and Labs for Last 24 Hours: Temp Pulse Resp BP Pulse Ox 98.7 F 92 H 20 98/67 L 94 L 07/21/19 08:00 07/21/19 08:00 07/21/19 08:00 07/21/19 08:00 07/21/19 08:00 Laboratory Results - last 24 hr 07/21/19 04:15: WBC 15.9 H, RBC 3.82 L, Hgb 11.7 L, Hct 38.2, MCV 99.8 H, MCH 30.6, MCHC 30.6 L, RDW 13.0, Plt Count 364, MPV 7.0 L, Neut % (Auto) 79.2, Lymph % (Auto) 12.2, [place] % (Auto) 5.9, Eos % (Auto) 2.1, Baso % (Auto) 0.5, Neut # (Auto) 12.6 H, Lymph # (Auto) 2.0, [place] # (Auto) 0.9, Eos # (Auto) 0.3, Baso # (Auto) 0.1, Total Counted 100, Neutrophils % (Manual) 79 H, Band Neutrophils % 5.0, Lymphocytes % (Manual) 12, Monocytes % (Manual) 4, Platelet Estimate Normal, Hypochromasia 3+, Macrocytosis 1+ 07/21/19 04:15: Sodium 141, Potassium 4.4, Chloride 102, Carbon Dioxide 29, Anion Gap 14.4, BUN 19 H, Creatinine 0.43 L, Estimated Creat Clear 23, Estimated GFR 146, Est GFR ( Amer) 176, Glucose 90, Calcium 8.7, Total Bilirubin 0.3, AST 20, ALT 19, Alkaline Phosphatase 141 H, Troponin I < 0.02, Total Protein 7.0, Albumin 3.3 L, Globulin 3.7 H, Albumin/Globulin Ratio 0.9 L 07/21/19 04:15: Lactate 0.6 07/21/19 04:22: O2 % 2, ABG pH 7.36, ABG pCO2 45.5 H, ABG pO2 40.0 L, ABG HCO3 25.0, ABG Total CO2 26.4, ABG O2 Saturation 74 L*, ABG Base Excess -0.5, Raul Test Y I & O for Last 24 hours: Intake & Output 07/18/19 07/19/19 07/20/19 07/21/19 11:59 11:59 11:59 10:59 Intake Total 300 / 300 Balance 300 / 300 Weight 61 lb 1 oz - *Routine HEENT Exam Head: Present: normocephalic Eye: Present: EOMI, PERRL ENT: Present: mucous membranes moist Comments: cachetic and frail - *Routine Neck Exam Present: supple. Absent: lymphadenopathy - *Routine Respiratory Exam Present: decreased breath sounds (on LLL), respiratory distress (mild), wheezes, diminished air movement. Absent: CTA bilaterally (on 2L of NC) - *Routine Cardiovascular Exam Present: RRR - *Routine Abdominal Exam Present: soft, normoactive bowel sounds. Absent: tenderness - *Routine Extremities Exam Absent: cyanosis, clubbing, edema - *Routine Skin Exam Present: warm. Absent: rash - *Routine Neurological Exam Present: alert, oriented X3 Assessment and Plan (1) LLL pneumonia Current visit: Yes Status: Acute Category: Medical Code(s): J18.1 - Lobar pneumonia, unspecified organism (2) COPD exacerbation Current visit: Yes Status: Acute Category: Medical Code(s): J44.1 - Chronic obstructive pulmonary disease with (acute) exacerbation - Assessment and plan all Dx Assessment and Plan for all problems:: We will continue antibiotics. Await for culture results. Will focus on ambulation and incentive spirometer today. Possible discharge tomorrow with p.o. antibiotics. Will also consult case management tomorrow to make sure her medications are affordable. She would be a good candidate for Trelegy inhaler.
--- NOTE | 2019-07-22 08:20 | Progress Note ---
<Hilary Banegas - Last Filed: 07/22/19 08:17> Internal Medicine - PN: Subj *Date: 07/22/19 *Time: 08:17 Interval history: Patient thinks she is better. Exertional shortness of breath. Is usually a poor eater. States she has abdominal pain periodically. Denies recent chest pain. Has been out of bed to the bedside commode. Exam Vital signs and Labs for Last 24 Hours: Temp Pulse Resp BP Pulse Ox 98.2 F 82 18 146/80 H 98 07/22/19 04:00 07/22/19 06:05 07/22/19 04:00 07/22/19 04:00 07/22/19 06:05 I & O for Last 24 hours: Intake & Output 07/19/19 07/20/19 07/21/19 07/22/19 12:59 12:59 11:59 11:59 Intake Total 1723 / 1723 Output Total 1000 / 1000 Balance 723 / 723 Weight 61 lb 0.983 oz Radiology Reports for the Last 24 Hours: 07/21/2019 chest x-ray IMPRESSION: COPD with chronic changes with patchy atelectasis or infiltrate in the left lung base - Constitutional no acute distress, thin, chronically ill appearing, cooperative - *Routine Respiratory Exam Present: decreased breath sounds, prolonged expiratory phase, wheezes Comments: Bilateral and expiratory wheeze. Diminished breath sounds posteriorly. Dyspneic with talking. - *Routine Cardiovascular Exam Present: RRR - *Routine Abdominal Exam Present: soft, normoactive bowel sounds, tenderness (Diffuse) - *Routine Extremities Exam Absent: edema, calf tenderness - *Routine Neurological Exam Present: alert, oriented X3 Assessment and Plan (1) LLL pneumonia Current visit: Yes Status: Acute Category: Medical Code(s): J18.1 - Lobar pneumonia, unspecified organism (2) COPD exacerbation Current visit: Yes Status: Acute Category: Medical Code(s): J44.1 - Chronic obstructive pulmonary disease with (acute) exacerbation - Assessment and plan all Dx Assessment and Plan for all problems:: Continue with oxygen, duo nebs, steroids, and antibiotics. Discussed smoking cessation. Patient would like to quit. <Bridget Monroe - Last Filed: 07/22/19 09:32> Internal Medicine - PN: Subj *Date: 07/22/19 *Time: 09:30 Exam Vital signs and Labs for Last 24 Hours: Temp Pulse Resp BP Pulse Ox 98.6 F 80 17 143/66 H 93 L 07/22/19 08:00 07/22/19 08:00 07/22/19 08:00 07/22/19 08:00 07/22/19 08:00 I & O for Last 24 hours: Intake & Output 07/19/19 07/20/19 07/21/19 07/22/19 12:59 12:59 11:59 11:59 Intake Total 2083 / 2083 Output Total 1150 / 1150 Balance 933 / 933 Weight 61 lb 0.983 oz Assessment and Plan (1) LLL pneumonia Current visit: Yes Status: Acute Category: Medical Code(s): J18.1 - Lobar pneumonia, unspecified organism (2) COPD exacerbation Current visit: Yes Status: Acute Category: Medical Code(s): J44.1 - Chronic obstructive pulmonary disease with (acute) exacerbation - Assessment and plan all Dx Assessment and Plan for all problems:: d/c home today with abx, steroids and nicotine patch for pneumonia, COPD exacerbation and tobacco cessation respectively. Advised to use her inhalers and neb treatments at home regularly and talk to her PCP about switching to triple therapy inhalers in her office visit.
--- NOTE | 2019-07-22 16:07 | Discharge Summary ---
General - General Admission date:: 07/21/19 Discharge date: 07/22/19 HPI HPI: Patient is a 68-year-old female who presented to [facility] ED via ambulance with shortness of breath and has history of stage IV COPD. She mentioned that she had been short of breath for 24 hours and had used her nebulizers which did help some but worsened at nighttime. She was unable to lay down. She usually used her hospital bed, but could not even sit up. So she called the ambulance and came to the ED. In route she received 2 nebulizer treatments in the ambulance. She was noted to be a a chronic smoker and use home oxygen of 2 L per nasal cannula continuously. She denied having any significant cough, sputum production or any fever. She mentioned having slight pleuritic pain in her chest and back for the past 2 to 3 days. She was not having any nausea, vomiting or diarrhea. She also mentioned that she had been out of her inhaler, Combivent, for the past few days due to her insurance not covering it. She used to see Stephanie Harper APRN at [facility]. In the ED, work-up showed left lower lobe pneumonia with chronic COPD changes in her chest x-ray. Her white blood count was elevated to 15,000. However she was noted to be on chronic steroids which was thought to possiby explain the leukocytosis. Hospital Course Hospital Course: On admission patient was started on Rocephin and Zithromax, duo nebs and steroids. She was noted to be cachectic and frail. Shortness of breath improved and O2 sats were satisfactory. She had minimal cough. She was up to the bedside commode. She ate very little which she said was her norm. Smoking cessation was discussed with the patient. She would like to try. On 07/22/2019 patient's breathing was at her norm. She was dyspneic with exertion. She was not coughing. She was stable to be discharged home. Patient discharged to home in stable and satisfactory condition. She was continue with her oxygen and was placed on oral antibiotic and steroids. She was also given nicotine patches. Follow-up to to be with Dr. Monroe on 07/31/2019. To note blood culture results pending at time of discharge. Objective Vital signs: Temp Pulse Resp BP Pulse Ox 98.6 F 84 17 143/66 H 95 07/22/19 08:00 07/22/19 09:58 07/22/19 08:00 07/22/19 08:00 07/22/19 09:58 Narrative: Exam Vital signs and Labs for Last 24 Hours: Temp Pulse Resp BP Pulse Ox 98.2 F 82 18 146/80 H 98 07/22/19 04:00 07/22/19 06:05 07/22/19 04:00 07/22/19 04:00 07/22/19 06:05 I & O for Last 24 hours: Intake & Output 07/19/19 07/20/19 07/21/19 07/22/19 12:59 12:59 11:59 11:59 Intake Total 1723 / 1723 Output Total 1000 / 1000 Balance 723 / 723 Weight 61 lb 0.983 oz Radiology Reports for the Last 24 Hours: 07/21/2019 chest x-ray IMPRESSION: COPD with chronic changes with patchy atelectasis or infiltrate in the left lung base - Constitutional no acute distress, thin, chronically ill appearing, cooperative - *Routine Respiratory Exam Present: decreased breath sounds, prolonged expiratory phase, wheezes Comments: Bilateral and expiratory wheeze. Diminished breath sounds posteriorly. Dyspneic with talking. - *Routine Cardiovascular Exam Present: RRR - *Routine Abdominal Exam Present: soft, normoactive bowel sounds, tenderness (Diffuse) - *Routine Extremities Exam Absent: edema, calf tenderness - *Routine Neurological Exam Present: alert, oriented X3 Results Completed studies during hospitalization [Text1]: 07/21/2019 chest x-ray IMPRESSION: COPD with chronic changes with patchy atelectasis or infiltrate in the left lung base Labs on day of discharge: Laboratory Tests 07/21/19 07/21/19 07/21/19 04:15 04:15 04:15 WBC 15.9 H RBC 3.82 L Hgb 11.7 L MCV 99.8 H MCH 30.6 MCHC 30.6 L Plt Count 364 Neut % (Auto) 79.2 Lymph % (Auto) 12.2 Williams % (Auto) 5.9 Sodium 141 Potassium 4.4 Chloride 102 Carbon Dioxide 29 BUN 19 H Creatinine 0.43 L Estimated GFR 146 Glucose 90 Lactate 0.6 Calcium 8.7 Total Bilirubin 0.3 AST 20 ALT 19 Alkaline Phosphatase 141 H Troponin I < 0.02 Total Protein 7.0 Albumin 3.3 L Globulin 3.7 H Albumin/Globulin Ratio 0.9 L DS: Diagnosis - Discharge Diagnosis (1) LLL pneumonia Status: Acute (2) COPD exacerbation Status: Acute (3) COPD (chronic obstructive pulmonary disease) Status: Chronic Discharge Plan - Patient Discharge Instructions ACTIVITY: Continue current activity, Ambulate as tolerated, No heavy lifting DIET: continue same diet Additional Instructions: use incentive spirometry Patient Instructions: Tips to Help You Stop Smoking, DI for Chronic Obstructive Pulmonary Disease, DI for Pneumonia -- Adult, How to Quit Smoking - Follow up Plan Follow up with: Bridget Monroe MD [Staff Physician] - 07/31/19 10:15 am (please arrive 15 minutes early for appointment for paperwork ) Unknown provider or service follow up:: 07/22/19 09:26 her PCP in 1-2 days Disposition: Home, Self-Senior Living Medications: Home Medications Medication Instructions Recorded Confirmed Type Phenytoin Sodium Extended 200 mg PO QODHS 10/17/17 07/21/19 History Phenytoin Sodium Extended 300 mg PO QODHS 10/17/17 07/21/19 History Sertraline HCl [Zoloft] 50 mg PO DAILY 10/17/17 07/21/19 History diphenhydrAMINE HCl [Benadryl] 25 mg PO NEEDED PRN 10/17/17 07/21/19 History Amlodipine Besylate [Amlodipine 5 mg PO DAILY 07/21/19 07/21/19 History 5mg tab] Ipratropium/Albuterol Sulfate 1 puff IN QID 07/21/19 07/21/19 History [Combivent Respimat Inh] Nicotine [Nicoderm 21mg/24hr 21 mg TD DAILYP PRN 30 Days #30 07/22/19 Rx patch] patch.td24 levoFLOXacin [Levaquin 500mg 500 mg PO DAILY 5 Days #5 tab 07/22/19 Rx tab] predniSONE [Prednisone 20mg 40 mg PO DAILY 5 Days #10 tab 07/22/19 Rx Tab] Prescriptions/Medication Reconciliation: New levoFLOXacin [Levaquin 500mg tab] 500 mg PO DAILY 5 Days #5 tab Nicotine [Nicoderm 21mg/24hr patch] 21 mg TD DAILYP PRN 30 Days #30 patch.td24 PRN Reason: Nicotine Cravings predniSONE [Prednisone 20mg Tab] 40 mg PO DAILY 5 Days #10 tab Continued Phenytoin Sodium Extended 200 mg PO QODHS Phenytoin Sodium Extended 300 mg PO QODHS diphenhydrAMINE HCl [Benadryl] 25 mg PO NEEDED PRN PRN Reason: allergies/sleep Ipratropium/Albuterol Sulfate [Combivent Respimat Inh] 1 puff IN QID Amlodipine Besylate [Amlodipine 5mg tab] 5 mg PO DAILY Sertraline HCl [Zoloft] 50 mg PO DAILY Discontinued predniSONE [Prednisone 5mg Tab] 5 mg PO DAILY - Problem Reconciliation Problems Reviewed?: Yes
--- NOTE | 2019-07-22 17:14 | Electrocardiograph Report ---
APPROVED REPORT Exam: Resting ECG HR:105 bpm ECG Measurements Heart Rate 105 AXES [place] 122 P 76 QRSd 64 QRS 55 QT 332 T54 QTc 438 <Conclusion> Sinus tachycardia Right atrial enlargement Borderline ECG Electronically signed by : Baltazar Mckeon, 07/22/2019 17:13:51
== END 2019-07-22 11:50 | disposition home or self-care (01) ==
LOC: ER 03:58 → 2ND 03:58
PROVIDERS: ADMIT Emergency Medicine; ATTEND Emergency Medicine
CPT/HCPCS: 71010; 71045; 80053; 82803; 83605; 84484; 85007; 85025; 87040; 90686; 93005; 94640; 94761; 96365; 96367; 96375; 99284; G0008; G0378; J0456